=== PATIENT | male | born 1945 | race Hispanic/Latino ===

== ENCOUNTER 2020-12-30 20:24 | Emergency (ER) | payer OTHER, BC ==
--- OUTSIDE RECORDS SUMMARY | 2020-12-30 20:30 | XMS REPORT | Continuity of Care Document ---
:1945 Author Organization [facility] t Address [address] [place] [address] Care Team Providers Name Role Phone SYSTEM, PROVIDER NOT IN Attending Clinician Unavailable LADOR Attending Clinician Unavailable MISTY Attending Clinician Unavailable Payers Payer Name Policy Type Policy Number Effective Date Expiration Date S jaleesa MEDICARE PART A [id number] 2011 AND B 00:00:00 Problems This patient has no known problems. Allergies, Adverse Reactions, Alerts This patient has no known allergies or adverse reactions. Medications This patient has no known medications. Procedures This patient has no known procedures. Encounters Start End Encounter Admission Attending Care Care Encounter Source Date/Time Date/Time Type Type Clinicians Facility Department ID 2020-12-28 Outpatient JAMES ISABEL MDA [id number] 08:24:49 PROVIDER Arjun chang 2020-12-25 Outpatient NEIDA YEBOAH [facility] [id number] [place] 12:21:02 Health 2020-12-06 Outpatient NEIDA YEBOAH [facility] [id number] [place] 13:54:05 Health 2020-11-29 Outpatient MISTY [facility] [id number] [place] 09:55:19 [facility] 2020-12-06 2020-12-06 Office Neida Yeboah [id number] 13:53:57 16:27:04 Visit STEFANI AHUMADA [id number] Results Test Description Test Time Test Comments Results Result Comments Source CHEMISTRY 25 PROFILE 2020-03-09 10:14:00 Test Item Value Reference Range Interpretation Comme nts SODIUM (test code = NA) 139 mmol/L 136-145 N POTASSIUM (test code = K) 4.3 mmol/L 3.5-5.1 N CHLORIDE (test code = CL) 105 mmol/L 98-107 N CARBON DIOXIDE (test code = CO2) 28 mmol/L 21-32 N GLUCOSE (test code = GLU) 114 mg/dL 70-100 H BLOOD UREA NITROGEN (test code = 19 mg/dL 7-18 H BUN) GLOMERULAR FILTRATION RATE (test 50.51 >=60 L Reporting units: code = GFR) mL/min/1.73m\S\ 2 (Modified MDRD formula)RE FERENCE RANGE: > or = 6 0 ml/min/1.73M2IF PATIENT IS -ALEXIS N, MULTIPLY REPORTED RESULT BY1.21. CREATININE (test code = CREAT) 1.38 mg/dl 0.70-1.30 H TOTAL PROTEIN (test code = PROT) 7.6 g/dl 6.4-8.2 N ALBUMIN (test code = ALB) 3.7 g/dl 3.4-5.0 N CALCIUM (test code = CA) 9.3 mg/dl 8.5-10.1 N PHOSPHOROUS (test code = PHOS) 3.9 mg/dl 2.6-4.7 N URIC ACID (test code = URIC) 5.1 mg/dL 3.5-7.2 N TRIGLYCERIDES (test code = TRIG) 86 mg/dL <150 CHOLESTEROL (test code = CHOL) 139 mg/dL < 200 BILIRUBIN TOTAL (test code = BILT) 0.5 mg/dL 0.2-1.0 N SGOT/AST (test code = AST) 37 U/L 15-37 N SGPT/ALT (test code = ALT) 48 U/L 12-78 N GAMMA GLUTAMYL TRANSPEPTIDASE 221 U/L 15-85 H (test code = GGT) ALKALINE PHOSPHATASE TOTAL (test 73 U/L 45-117 N code = ALKP) LACTIC DEHYDROGENASE(LDH) (test 226 U/L 87-241 N code = LDH) HDL CHOLESTEROL (test code = HDL) 69 mg/dL 40-59 H NON-HDL CHOLESTEROL (test code = 70 mg/dl <130 NHDL) LIPOPROTEIN LDL CALI (test code = 53 mg/dl <100 LDLC) LDL/HDL (test code = LDL/HDL) 0.8 Ratio LDL/HDL RATIO RISK ----- -------- ---- 3.[address] 5[address] average 6.14 Three times average [id number] 10:14:00 Test Item Value Reference Range Interpretation Comments GLYCOSYLATED HEMOGLOBIN 6.1 % <5.7 H * DU E TO METHOD (HA1C) (test code = REVISION , REFERENCE GLYHGB) RANGE HAS BEEN UPDATED * ESTIMATED AVERAGE 128 MG/DL <126 GLUCOSE (test code = EAG) PECBC W/AUTO [id number] 09:39:00 Test Item Value Reference Range Interpretation Comments WHITE BLOOD CELL (test code = 7.5 X10(3) 4.5-11.0 N WBC) RED BLOOD CELL (test code = 4.95 X10(6) 4.3-5.9 N RBC) HEMOGLOBIN (test code = HGB) 13.3 g/dL 13.5-18.0 L HEMATOCRIT (test code = HCT) 41.2 % 42.0-52.0 L MEAN CELL VOLUME (test code = 83.2 fL 78-100 N MCV) MEAN CELL HGB (test code = MCH) 26.9 pg 26.0-34.0 N MEAN CELL HGB CONCETRATION 32.3 g/dl 30.0-37.0 N (test code = MCHC) RED CELL DISTRIBUTION WIDTH 14.8 % 11.5-14.5 H (test code = RDW) PLATELET COUNT (test code = 291 X10(3) 150-350 N PLT) MEAN PLATELET VOLUME (test code 11.5 fl 8.7-11.4 H = MPV) NEUTROPHIL % (test code = NT%) 66.5 % 36.0-66.0 H IMMATURE GRANULOCYTE % (test 0.1 % 0.0-2.0 N code = IG%) LYMPHOCYTE % (test code = LY%) 19.1 % 16-50 N MONOCYTE % (test code = MO%) 9.1 % 0.0-13.0 N EOSINOPHIL % (test code = EO%) 4.3 % 0.0-4.5 N BASOPHIL % (test code = BA%) 0.9 % 0.0-1.5 N NEUTROPHIL # (test code = NT#) 5.0 X10(3) 1.7-7.7 N IMMATURE GRANULOCYTE # (test 0.01 X10(3)uL 0.00-0.03 N code = IG#) LYMPHOCYTE # (test code = LY#) 1.4 X10(3) 1.0-4.8 N MONOCYTE # (test code = MO#) 0.7 X10(3) 0.0-0.89 N EOSINOPHIL # (test code = EO#) 0.3 X10(3) 0.0-0.6 N BASOPHIL # (test code = BA#) 0.1 X10(3) 0.0-0.2 N PE
== END 2020-12-30 21:08 | disposition left against medical advice (07) ==
LOC: ER 20:24
DX: Z02.9 Encounter for administrative examinations, unspecified (principal)